=== PATIENT | female | born 1935 | race Caucasian/White ===

== ENCOUNTER 2016-12-03 22:05 | Emergency (ER) | payer MEDICARE, OTHER ==
[2016-12-03 20:42] LABS: BASOPHILS 0.7 %; BASOPHILS ABSOLUTE 0.07 10/3/uL (0.0-0.16); EOSINOPHILS 2.2 %; EOSINOPHILS ABSOLUTE 0.22 10/3/uL (0.0-0.53); ER CBC TAT 0 Hrs 05 Mins; HEMATOCRIT 35.3 % (36.0-48.0); HEMOGLOBIN 11.5 g/dL (12.0-16.0); IMMATURE GRANULOCYTES 0.2 %; IMMATURE GRANULOCYTES ABSOLUTE 0.02 10/3/uL (0.0-0.11); LYMPHOCYTES 15.7 %; MEAN CORPUS HGB CONC 32.6 g/dL (32.0-36.0); MEAN CORPUSCULAR HEMOGLOB 32.3 pg (26.0-34.0); MEAN PLATELET VOLUME 9.8 fL (9.2-13.0); MONOCYTES 8.8 %; NEUTROPHILS 72.4 %; NEUTROPHILS ABSOLUTE 7.41 10/3/uL (2.02-8.40); PLATELET COUNT 200 10/3/uL (150-400); RBC DISTRIBUTION WIDTH 14.2 % (12.0-16.0); RED CELL COUNT 3.56 10/6/uL (4.0-5.6); WHITE BLOOD CELLS 10.2 10/3/uL (4.5-10.5)
[2016-12-03 20:43] LABS: MANUAL DIFF NO %; MEAN CORPUSCULAR VOLUME 99.2 fL (80-100)
[2016-12-03 20:50] LABS: INTERNATIONAL NORMAL RATI 1.2 UNITS (-); PARTIAL THROMBO TIME 29.6 SEC (22.5-37.2); PROTIME (NOT ORD) 14.9 SEC (12.0-14.5)
[2016-12-03 21:04] LABS: BUN (BLOOD UREA NITROGEN) 52 MG/DL (6-23); CALCIUM, SERUM 8.6 MG/DL (8.5-10.4); CHEST PAIN PROFILE TAT 0 Hrs 27 Mins; CHLORIDE, SERUM 104 MMOL/L (96-112); CO2 (CARBON DIOXIDE) 29 MMOL/L (24-34); CREATININE 2.01 MG/DL (0.55-1.02); GFR AFRICAN AMERICAN 26 ML/MIN (>=60); GFR NON AFRICAN AMERICAN 22 ML/MIN (>=60); GLUCOSE, SERUM 134 MG/DL (60-99); POTASSIUM, SERUM 3.7 MMOL/L (3.5-5.3); SODIUM, SERUM 139 MMOL/L (135-148); TROPONIN I <0.02 NG/ML (<0.05)
[~2016-12-03 22:05] MED LIST: AMARYL4 PO; ARMOUR THYRO30 MG PO; ASAB PO; BRILINTA90 MG PO; CALCIUM PO; CAT1 PO; COREG25 PO; COREG3 PO; COREG6 PO; COZ50 PO; COZAAR100 MG PO; DIABETA5 PO; FERROUS SULF325 M1 PO; FISH-EPA1000 MG PO; GLUCPH PO; IMDUR30 PO; KLOR-CON 1010 MEQ PO; L20 PO; L40 PO; LEVEMFLXPN SC; LEXAPRO5 MG PO; NITROII20C TOP; NOVOPEN SC; ONGLYZA5 MG PO; PLEND5 PO; PRAVACHOL40 MG PO; PRILO PO; RELA5 PO; REQUIP25 PO; SACU1TAB PO; SPIRO25 PO; STARLIX60 PO; TICAGRELOR PO; TOPXL100 PO; TRANDAT100 PO; ULTRAM50 PO; VIT B COMPLEX PO; VITAMIN D1000 UNI1 PO; VITAMIN D31000 UNIT PO; ZANTAC150 MG PO
== END 2016-12-03 22:11 | disposition home or self-care (01) ==
LOC: ER 22:05
PROVIDERS: Hospitalist
DX: I13.0 Hypertensive heart and chronic kidney disease with heart failure and stage 1 through stage 4 chronic kidney disease, or unspecified chronic kidney disease (principal); I50.9 Heart failure, unspecified; E11.22 Type 2 diabetes mellitus with diabetic chronic kidney disease; N18.4 Chronic kidney disease, stage 4 (severe); I25.10 Atherosclerotic heart disease of native coronary artery without angina pectoris; Z88.5 Allergy status to narcotic agent; Z88.1 Allergy status to other antibiotic agents; Z88.2 Allergy status to sulfonamides; Z88.8 Allergy status to other drugs, medicaments and biological substances; Z79.82 Long term (current) use of aspirin; Z79.4 Long term (current) use of insulin; Z79.899 Other long term (current) drug therapy
CPT/HCPCS: 71010; 80048; 83735; 83880; 84484; 85025; 85610; 85730; 96374; 99285; J1940